=== PATIENT | male | born 1975 ===

== ENCOUNTER 2024-04-08 12:08 | Emergency (ER) | payer OTHER, SELFPAY ==
[2024-04-08 12:11] VITALS: BP 124/78; PULSE 76; O2SAT 92
[2024-04-08 12:13] VITALS: BP 96/51; PULSE 68; RESP 16; TEMP 36.3; O2SAT 95; BMI 29.5
--- NOTE | 2024-04-08 13:41 | ED_ITS ---
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 He reports he has been at [facility] for 10 days and when he 1st got there it was a small pimple. It continued to grow larger and become more painful. Staff started him on an oral and topical antibiotic yesterady and he took 2 doses. the redness and pain have gotten worse. denies fever or chills. he reports the pain is extending down into the left chest wall. hx similar presentations in the past that required I&D. MD complaint: abscess/boil Onset (ago): day(s) Tetanus up to date: yes Location: LUE Severity: severe Quality: stabbing and aching Pain Consistency: constant Relieving factors: other (arm above head) Exacerbating factors: palpation and movement Context: none Associated symptoms: denies other symptoms Treatments prior to arrival: antibiotic Related Data Previous Rx's ?Medication ?Instructions ?Recorded cephalexin 500 mg tablet 500 mg PO Q6H 7 days #28 tabs 04/08/24 doxycycline monohydrate 100 mg 100 mg PO BID #14 tabs 04/08/24 tablet Allergies Allergy/AdvReac Type Severity Reaction Status Date / Time No Known Allergies Allergy Verified 04/08/24 12:14 Review of Systems Review of Systems: Yes all other systems are reviewed and are negative [facility] Social History Social History Advance Directives: No Advance Directives Information Provided: Yes Physical Exam Vital Signs: Vital Signs: Last Vital Signs Temp 97.3 F 04/08/24 12:13 Pulse 68 04/08/24 12:13 Resp 16 04/08/24 12:13 BP 96/51 L 04/08/24 12:13 Pulse Ox 95 04/08/24 12:13 O2 Del Method Room Air 04/08/24 12:13 BMI result Body Mass Index 29.5 Appearance: Alert. Oriented X3. No acute distress. HEENT: normal inspection CVS: Normal heart rate and rhythm. Pulses normal. Respiratory: No respiratory distress. speaking in complete sentences Skin: Skin warm and dry. Normal skin color. Normal skin turgor. No rashes. Extremities: left axillary area with a 3cm area of swelling, tenderness, fluctuance. moderate surrounding erythema and warmth c/w cellulitis. no track man on UE Neuro: Oriented X 3. No motor deficit. No sensory deficit. Medical Decision Making Medical Decision Making [facility] Narrative: 48-year-old male with history of IVDA sober for the last 1 month presents to the ER for evaluation of left axillary abscess and cellulitis that has been worsening for the last week or so. He took 2 oral doses of antibiotic, unsure which 1. He has had worsening symptoms. On arrival he is afebrile, not tachycardic. Blood pressure soft but stable and he is asymptomatic. Exam is consistent with an abscess with surrounding cellulitis. Abscess was drained, tolerated well. Small amount of iodoform packing was placed. Dry sterile dressing placed. Will start him on oral Keflex and doxycycline. He is stable to go back to [facility] for ongoing psychiatric treatment. Differential Diagnosis Differential Diagnoses: The differential diagnosis associated with the presentation includes Abscess, cellulitis, folliculitis, carbuncle,, MRSA infection Admission/Observation Consideration of admission/observation: Escalation of care including admission/observation considered Does not appear to be treatment failure as he only took 2 oral doses, no indication for admission at this time Independent Historian Clinical information obtained from an independent historian. History obtained from or confirmed by: EMS Tests considered The following testing was considered but not selected: Basic lab considered, low suspicion for sepsis Prescription Management I considered prescription management with: Pain Medication and Antibiotic Chronic Conditions Patient?s care impacted by: Other (IVDA) Procedures Abscess I/D Site: upper extremity Side (if applicable): left Local Anesthetic: lidocaine 1% Amount of anesthesia used (mL): 1 Technique: incised with blade Sent for culture/gram staining?: No Irrigation: Yes Packing used?: iodoform Complications: pain and bleeding Critical Care Time Critical Care Time Critical Care Time: No Discharge Plan Discharge Clinical Impression: Abscess of skin or subcutaneous tissue Qualifiers: Site of cutaneous abscess: extremity Site of cutaneous abscess of extremity: axilla Laterality: left Qualified Code(s): L02.412 - Cutaneous abscess of left axilla Cellulitis Qualifiers: Site of cellulitis: extremity Site of cellulitis of extremity: axilla Laterality: left Qualified Code(s): L03.112 - Cellulitis of left axilla Patient Disposition: Home, Self-Care Instructions: Cellulitis (ED), Abscess Incision and Drainage (DC) Additional Instructions: take the packing out in 2 days use warm compresses to the area 3 times per day change the gauze dressing as needed Take the prescribed antibiotics as directed, complete the entire course and do not miss any doses If you develop new or worsening symptoms call 911 or come back to the ER for further evaluation. Prescriptions: New doxycycline monohydrate 100 mg tablet 100 mg PO BID Qty: 14 0RF cephalexin 500 mg tablet 500 mg PO Q6H 7 Days Qty: 28 0RF Print Language: Kiswahili
[2024-04-08] MEDS: Lidocaine HCl 1 % MPF 2 ML VIAL INFILTRATI (14:42)
[2024-04-08 15:34] VITALS: BP 108/59; PULSE 60; RESP 18; TEMP 36.5; O2SAT 96
[2024-04-08 15:55] VITALS: BP 108/59; PULSE 60; RESP 18; TEMP 36.5; O2SAT 96
== END 2024-04-08 15:57 | disposition home or self-care (01) ==
PROVIDERS: Emergency Provider Emergency Medicine
DX: L02.412 Cutaneous abscess of left axilla (principal); L03.112 Cellulitis of left axilla; R00.0 Tachycardia, unspecified
CPT/HCPCS: 10060; 99283; 99284; J2003